=== PATIENT | female | born 1960 | race Caucasian/White ===

== ENCOUNTER 2018-09-25 07:10 | Day surgery (SDC) | payer BC, OTHER ==
[~2018-09-25] VITALS: Ht 157.5 cm; Wt 65.4 kg
[2018-09-25 08:01] VITALS: Ht 157.5 cm; Wt 65.4 kg
--- NOTE | 2018-09-25 08:05 | PREAC ---
Date/Time of Note Date/Time of Note DATE: 09/25/18 TIME: 08:03 Anesthesia Eval and Record Evaluation Time Pre-Procedure Interview DATE: 09/25/18 TIME: 08:03 Age 57 Sex female NPO: 8 hrs Preoperative diagnosis gerd Planned procedure egd, colonoscopy Past Medical History Past Medical History: Includes Cardio: HTN, Dyslipidemia Surgery & Anesthesia Issues No known issue Meds Anticoagulation: No Beta Becky within 24 hr: No Reason Beta Becky not given: Pt. not on B-Becky Meds reviewed: Yes Allergies Coded Allergies: No Known Allergy (Unverified , 09/25/18) Allergies Reviewed: Yes Labs/Studies Labs Reviewed: Reviewed by anesthesiologist test: N/A Pre-procedure Exam Airway: Adequate mouth opening, Adequate thyromental dist Mallampati: Mallampati II Teeth: Normal Lung: Normal Heart: Normal ASA Physical Status ASA physical status: 3 Emergency: None Planned Anesthetic General/MAC: ETT Pre-operative Attestations Prior to commencing anesthesia and surgery, the patient was re-evaluated, there was verification of: *The patient's identity *The results of appropriate recent lab work and preoperative vital signs *The above evaluation not changing prior to induction *Anesthetic plan, risk benefits, alternative and complications discussed with patient/family; questions answered; patient/family understands, accepts and wishes to proceed. ELLIS BALDWIN Sep 25, 2018 08:05
[2018-09-25 08:24] VITALS: BP 150/72; PULSE 64; RESP 20
[2018-09-25] MEDS ORDERED: IRON (08:28)
[2018-09-25] MEDS ORDERED: LOSARTAN (08:28)
[2018-09-25] MEDS ORDERED: GLIMEPIRIDE (08:28)
[2018-09-25] MEDS ORDERED: OMEGA 3 (08:28)
[2018-09-25] MEDS ORDERED: AMLODIPINE (08:28)
[2018-09-25] MEDS ORDERED: ATORVASTATIN (08:28)
[2018-09-25] MEDS ORDERED: CLOPIDOGREL (08:28)
[2018-09-25] MEDS ORDERED: INSULIN (08:28)
[2018-09-25] MEDS ORDERED: LIDOCAINE 2% (SDV) 5 ML INJ ONE (08:41)
[2018-09-25] MEDS ORDERED: PROPOFOL 200 MG INJ ONE (08:41)
[2018-09-25] MEDS ORDERED: GLYCOPYRROLATE 0.4 MG INJ ONE (08:41)
[2018-09-25 09:52] VITALS: BP 131/63; RESP 23
--- NOTE | 2018-09-26 09:30 | PAC ---
Date/Time of Note Date/Time of Note DATE: 09/26/18 TIME: 09:30 Post-Anesthesia Notes Post-Anesthesia Note Last documented vital signs Vital Signs Date Temp Pulse Resp B/P (MAP) Pulse Ox O2 O2 Flow FiO2 Time Delivery Rate 09/25/18 23 131/63 100 09:52 (85) 09/25/18 97.7 64 Room Air 08:24 Activity: WNL Respiratory function: WNL Cardiovascular function: WNL Mental status: Baseline Pain reasonably controlled: Yes Hydration appropriate: Yes Nausea/Vomiting absent: Yes ELLIS BALDWIN Sep 26, 2018 09:30
== END 2018-09-25 12:49 | disposition home or self-care (01) ==
LOC: GIL 07:10
PROVIDERS: ATTEND Internal Medicine Gastroenterology
DX: D12.2 Benign neoplasm of ascending colon (principal); K29.50 Unspecified chronic gastritis without bleeding; I10 Essential (primary) hypertension; E78.5 Hyperlipidemia, unspecified; K20.8 Other esophagitis
CPT/HCPCS: 43239; 45380; 82962; 88305; 88312; 88313; Z7610